=== PATIENT | female | born 1950 | race Caucasian/White ===

== ENCOUNTER 2022-04-06 05:35 | Observation (INO) | payer OTHER ==
[2022-04-06 06:37] LABS: Absolute Lymphocytes (CBC) 1.4 K/uL (0.7-4.9); Hematocrit 32.3 % (36.0-45.0); Lymphocytes % 30.9 % (15.3-44.8); MCV 90.5 fL (80-100); MPV 7.4 fL (7.6-11.3); RBC Red Blood Cell Count 3.57 M/uL (3.86-4.86)
[2022-04-06 06:38] LABS: Protime INR 1.05
[2022-04-06 06:57] LABS: Potassium 3.4 mmol/L (3.5-5.1); Troponin High Sensitivity 3.7 pg/mL (<58.9)
--- NOTE | 2022-04-06 07:13 | RAD REPORT ---
EXAM DESCRIPTION: RAD - Chest Single View - 04/06/2022 6:23 am CLINICAL HISTORY: CHEST PAIN COMPARISON: No comparisons FINDINGS: Lines: None. Lungs: No evidence of edema or pneumonia. Pleural: No significant pleural effusions or pneumothorax. Cardiac: The heart size is within normal limits. Bones: No acute fractures. Other: IMPRESSION: No acute cardiopulmonary disease.
--- NOTE | 2022-04-06 07:43 | RAD REPORT ---
EXAM DESCRIPTION: CT - Chest For Pe Angio - 04/06/2022 7:25 am CLINICAL HISTORY: chest pain, rule out PE COMPARISON: No comparisons TECHNIQUE: Dynamically enhanced axial 3 mm thick images of the chest were obtained during administra tion of <100> mL Isovue 370 IV contrast. Coronal and oblique reconstruction images were generated and reviewed. Exam utilizes a protocol for optimal evaluation of pulmonary arterial tree. Maximum intensity projections 3D imaging was utilized All CT scans are performed using dose optimization technique as appropriate and may include automated exposure control or mA/KV adjustment according to patient size. FINDINGS: Chest Wall: No suspicious thyroid nodules or pathologic lymphadenopathy. Bilateral breast prostheses. Lungs: No acute abnormality. Pleura: No significant effusions or pneumothorax. Mediastinum/brandan: No pathologic lymphadenopathy. Pulmonary arteries/Aorta: No filling defect identified. No aortic aneurysm. Heart: No significant pericardial effusion. Normal heart size. Upper abdomen: No acute abnormality. Bones: No acute abnormality. IMPRESSION: Negative for pulmonary embolism. No other acute findings identified.
--- NOTE | 2022-04-06 07:52 | EKG ---
Test Date: 2022-04-06 Test Time: 05:53:12 Spa Host: RENETTA MEASUREMENT RESULTS: Intervals: Rate: 89 WV: 178 QRSD: 90 QT: 368 QTc: 447 [place]: P: 70 WV: 178 QRS: 19 T: 73 INTERPRETIVE STATEMENTS: Normal sinus rhythm Possible Left atrial enlargement Borderline ECG No previous ECG available for comparison Electronically Signed On 04-06-22 07:52:20 CDT by Ramone Prather
--- NOTE | 2022-04-06 08:13 | RAD REPORT ---
EXAM DESCRIPTION: US - Extrem Venous W Compress [place] - 04/06/2022 7:42 am CLINICAL HISTORY: Swelling COMPARISON: No comparisons TECHNIQUE: Real-time sonographic evaluation of the lower extremity deep venous systems was performed using color Doppler, grayscale, and compression. FINDINGS: Bilateral lower extremities. Normal compressibility, flow augmentation, phasic flow and spontaneous flow is identified in both the left and right lower extremity deep venous systems. No intraluminal filling defects seen. IMPRESSION: No DVT in either lower extremity.
--- NOTE | 2022-04-06 08:17 | RAD REPORT ---
EXAM DESCRIPTION: US - Lower Extremity Arterial Bilat - 04/06/2022 7:42 am CLINICAL HISTORY: Discoloration to calves COMPARISON: None FINDINGS: Color Doppler, grayscale, and spectral analysis was performed. The common femoral and superficial femoral artery is bilaterally demonstrate triphasic waveforms. The left popliteal artery has triphasic waveforms. The right popliteal artery has biphasic waveforms. The right dorsalis pedis artery has biphasic waveforms. Monophasic waveforms in the right posterior t ibial artery. The left dorsalis pedis and posterior tibial arteries have biphasic waveforms IMPRESSION: Monophasic waveforms at the posterior tibial artery on the right side, otherwise no flow limiting stenoses within either lower extremity.
--- NOTE | 2022-04-06 08:29 | ER ---
Nurse's Notes [facility] Name: May Jessica Age: 71 yrs Sex: Female : 1950 Arrival Date: 04/06/2022 Time: 05:39 Bed 24 Private MD: Diagnosis: Chest pain, unspecified Presentation: 04/06 05:58 Chief complaint: Patient states: she started having chest pain which feels like an bb elephant on her chest pain is burning she also has swelling and bruising to bilateral lower legs which just started she had a CVA about a month ago. Coronavirus screen: At this time, the client does not indicate any symptoms associated with coronavirus-19. Ebola Screen: No symptoms or risks identified at this time. Initial Sepsis Screen: Does the patient meet any 2 criteria? No. Patient's initial sepsis screen is negative. Does the patient have a suspected source of infection? No. Patient's initial sepsis screen is negative. Risk Assessment: Do you want to hurt yourself or someone else? Patient reports no desire to harm self or others. Onset of symptoms was April 06, 2022. 05:58 Method Of Arrival: Wheelchair bb 05:58 Acuity: JABIER 2 bb Triage Assessment: 06:09 General: Appears in no apparent distress. Behavior is calm, cooperative. Pain: kd3 Complains of pain in chest. Cardiovascular: Patient's skin is warm and dry. Historical: - Allergies: 06:00 PENICILLINS; bb 06:00 Sulfa (Sulfonamide Antibiotics); bb 06:00 Dolobid; bb 06:00 Tylenol; bb 06:00 many others; bb - Home Meds: 06:00 levocetirizine oral [Active]; pantoprazole oral [Active]; Cyclobenzaprine Oral bb [Active]; Nitrostat SL [Active]; colchicine Oral [Active]; labetalol Oral [Active]; Aspirin Oral [Active]; - PMHx: 06:00 Myocardial infarction; Hypertensive disorder; cancer; CVA; bb - Immunization history:: Client reports receiving the Gaetano \\T\\ Gaetano single-dose vaccine. - Social history:: Smoking status: Patient denies any tobacco usage or history of. - Family history:: not pertinent. - Hospitalizations: : Patient was recently seen at. Screenin:08 Abuse screen: Denies threats or abuse. Denies injuries from another. Nutritional kd3 screening: No deficits noted. Tuberculosis screening: No symptoms or risk factors identified. Fall Risk IV access (20 points). Assessment: 06:09 Pain: Pain does not radiate. Pain began gradually. kd3 06:40 Neuro: Level of Consciousness is awake, alert, obeys commands, Oriented to person, kd3 place, time, situation. Cardiovascular: Patient's skin is warm and dry. Respiratory: Airway is patent Trachea midline Respiratory effort is even, unlabored, Respiratory pattern is regular, symmetrical. Musculoskeletal: Swelling present in right leg and left leg. 07:10 Reassessment: pt. at cat scan. ha1 07:40 Reassessment: Patient and/or family updated on plan of care and expected duration. Pain ha1 level reassessed. Patient is alert, oriented x 3, equal unlabored respirations, skin warm/dry/pink. 08:01 Reassessment: Patient and/or family updated on plan of care and expected duration. Pain ha1 level reassessed. Patient is alert, oriented x 3, equal unlabored respirations, skin warm/dry/pink. 09:00 Reassessment: Patient and/or family updated on plan of care and expected duration. Pain ha1 level reassessed. Patient is alert, oriented x 3, equal unlabored respirations, skin warm/dry/pink. 09:45 Reassessment: Patient and/or family updated on plan of care and expected duration. Pain ha1 level reassessed. Patient is alert, oriented x 3, equal unlabored respirations, skin warm/dry/pink. 09:45 Reassessment: pt. states " my pain has decreased". ha1 10:45 Reassessment: Patient and/or family updated on plan of care and expected duration. Pain ha1 level reassessed. Patient is alert, oriented x 3, equal unlabored respirations, skin warm/dry/pink. 11:40 Reassessment: Patient and/or family updated on plan of care and expected duration. Pain ha1 level reassessed. Patient is alert, oriented x 3, equal unlabored respirations, skin warm/dry/pink. report having back pain. states " its a chronic pain that I always have". 12:40 Reassessment: Patient and/or family updated on plan of care and expected duration. Pain ha1 level reassessed. Patient is alert, oriented x 3, equal unlabored respirations, skin warm/dry/pink. 13:40 Reassessment: Patient and/or family updated on plan of care and expected duration. Pain ha1 level reassessed. Patient is alert, oriented x 3, equal unlabored respirations, skin warm/dry/pink. Vital Signs: 05:58 BP 171 / 97; Pulse 99; Resp 18 S; Temp 98.7(O); Pulse Ox 100% on R/A; Weight 45.36 kg bb (R); Height 5 ft. 0 in. (152.40 cm) (R); Pain 8/10; 06:40 BP 148 / 84; Pulse 84; Resp 18; Pulse Ox 97% on R/A; kd3 07:40 BP 151 / 101; Pulse 83; Resp 15 S; Pulse Ox 96% on R/A; ha1 08:01 BP 141 / 84; Pulse 83; Resp 17 S; Pulse Ox 99% on R/A; ha1 09:14 BP 143 / 82; Pulse 88; Resp 18 S; Pulse Ox 100% on R/A; ha1 09:45 BP 135 / 81; Pulse 77; Resp 19 S; Pulse Ox 98% on R/A; ha1 10:45 BP 139 / 87; Pulse 81; Resp 15 S; Pulse Ox 98% on R/A; Pain 6/10; ha1 11:40 BP 137 / 86; Pulse 80; Resp 17 S; Pulse Ox 98% on R/A; ha1 12:35 BP 132 / 83; Pulse 85; Resp 16 S; Pulse Ox 98% on R/A; Pain 4/10; ha1 13:30 BP 139 / 108; Pulse 82; Resp 16 S; Pulse Ox 99% on R/A; ha1 05:58 Body Mass Index 19.53 (45.36 kg, 152.40 cm) bb ED Course: 05:39 Patient arrived in ED. bp1 05:39 Yoni Esquivel MD is Attending Physician. rn 05:46 Carole Guido, ALEJANDRA is Primary Nurse. kd3 06:00 Triage completed. bb 06:00 Arm band placed on Patient placed in an exam room, on a stretcher, on compliance monitor, bb on pulse oximetry. EKG completed in triage. Results shown to MD. 06:08 Patient has correct armband on for positive identification. Client placed on continuous kd3 cardiac and pulse oximetry monitoring. NIBP monitoring applied. 06:08 No provider procedures requiring assistance completed. Inserted saline lock: 22 gauge kd3 in left wrist, using aseptic technique. Blood collected. Patient maintains SpO2 saturation greater than 95% on room air. 06:24 XRAY Chest (1 view) In Process Unspecified. EDMS 07:07 Attending Physician role handed off by Yoni Esquivel MD sp3 07:07 Luke Giang MD is Attending Physician. sp3 07:27 CT Chest For PE Angio In Process Unspecified. EDMS 07:44 Extrem Venous W Compression Kendall US In Process Unspecified. EDMS 07:44 Lower Extremity Arterial Bilat US In Process Unspecified. EDMS 08:28 Anil Laboy is Hospitalizing Provider. sp3 14:00 Patient admitted, IV remains in place. ha1 Administered Medications: 09:18 Drug: Ondansetron 4 mg Route: IVP; Site: left forearm; ha1 09:45 Follow up: Response: No adverse reaction ha1 09:19 Drug: morphine 2 mg {Note: pain 10/10 RR 18 bp 143/82 HR 88.} Route: IVP; Infused Over: ha1 4 mins; Site: left forearm; 09:45 Follow up: Response: No adverse reaction; Pain is decreased; RASS: Alert and Calm (0) ha1 Medication: 06:10 VIS not applicable for this client. kd3 Outcome: 08:28 Decision to Hospitalize by Provider. sp3 14:00 Admitted to ER Hold. Please see [facility] for further documentation. ha1 14:00 Condition: stable 14:00 Instructed on the need for admit, Demonstrated understanding of instructions. 08 09:42 Patient left the ED. vg1 Signatures: Dispatcher [employer] EDMS Elham Mcmullen RN ALEJANDRA bb Yoni Esquivel MD MD rn Garcia, Victoria RN ALEJANDRA vg1 Linda La Setul, MD MD sp3 Carole Guido RN RN kd3 Yazmin Soto RN RN ha1 Corrections: (The following items were deleted from the chart) 04/06 11:20 10:35 Reassessment: Patient and/or family updated on plan of care and expected ha1 duration. Pain level reassessed. Patient is alert, oriented x 3, equal unlabored respirations, skin warm/dry/pink. ha1 11:49 10:45 BP 139 / 87; Pulse 81bpm; Resp 15bpm; Spontaneous; Pulse Ox 98% RA; ha1 ha1
--- NOTE | 2022-04-06 08:29 | EDPHYS ---
Physician Documentation [facility] Name: May Jessica Age: 71 yrs Sex: Female : 1950 Arrival Date: 04/06/2022 Time: 05:39 Bed 24 Private MD: ED Physician Luke Giang HPI: 04/06 06:13 This 71 yrs old Female presents to ER via Wheelchair with complaints of Chest Pain > 30 rn y/o, Leg Swelling. 06:13 The patient or guardian reports chest pain that is located primarily in the substernal rn area. Onset: 6 hour(s) ago. The pain radiates to neck. Associated signs and symptoms: Pertinent positives: lower extremity swelling, shortness of breath, Pertinent negatives: abdominal pain, cough, palpitations, syncope, vomiting. The chest pain is described as a heaviness. Duration: The patient or guardian reports a single episode, that is still ongoing. Modifying factors: The symptoms are alleviated by nothing. the symptoms are aggravated by nothing. Severity of pain: At its worst the pain was moderate in the emergency department the pain is unchanged. The patient has experienced similar episodes in the past. The patient has not recently seen a physician. Pt reports "was fine until 6 hours ago", when began to experience sudden leg swelling, bilateral, with bruising and pain. Also reports "elephant sitting on chest" that began shortly after. + assoc sob. Went across the street to [place], told they could not see her, and was directed to this hospital. No fever or trauma. Reports diagnosed with stroke about 1 month ago, has been staying in bed due to leg weakness, and states only taking aspirin. . Historical: - Allergies: 06:00 PENICILLINS; bb 06:00 Sulfa (Sulfonamide Antibiotics); bb 06:00 Dolobid; bb 06:00 Tylenol; bb 06:00 many others; bb - Home Meds: 06:00 levocetirizine oral [Active]; pantoprazole oral [Active]; Cyclobenzaprine Oral bb [Active]; Nitrostat SL [Active]; colchicine Oral [Active]; labetalol Oral [Active]; Aspirin Oral [Active]; - PMHx: 06:00 Myocardial infarction; Hypertensive disorder; cancer; CVA; bb - Immunization history:: Client reports receiving the Gaetano \\T\\ Gaetano single-dose vaccine. - Social history:: Smoking status: Patient denies any tobacco usage or history of. - Family history:: not pertinent. - Hospitalizations: : Patient was recently seen at. ROS: 06:13 Constitutional: Negative for fever, chills, and weight loss, Eyes: Negative for injury, rn pain, redness, and discharge, Neck: Negative for injury, pain, and swelling, Cardiovascular: + chest pain Respiratory: + sob Abdomen/GI: Negative for abdominal pain, nausea, vomiting, diarrhea, and constipation, Back: Negative for injury and pain, : Reports difficulty urinating "since stroke" MS/Extremity: + swelling and pain to bilateral legs Skin: + discoloration of legs Neuro: Negative for headache, numbness, tingling, and seizure. Exam: 06:13 Constitutional: This is a well developed, well nourished patient who is awake, alert, rn and in no acute distress. Head/Face: Normocephalic, atraumatic. Eyes: Periorbital areas with no swelling, redness, or edema. Cardiovascular: Regular rate and rhythm. No pulse deficits. Respiratory: Clear bilateral breath sounds. No increased work of breathing, no retractions or nasal flaring. Abdomen/GI: soft, non-tender, no masses or distension Back: No spinal tenderness. Skin: Warm, dry, + splotchy ecchymotic lesions to bilateral lower extremities. No open wounds. + varicose veins. MS/ Extremity: Pulses equal, strong pedal pulses. 2+ edema bilateral lower ext. Neuro: Awake and alert, GCS 15 Vital Signs: 05:58 BP 171 / 97; Pulse 99; Resp 18 S; Temp 98.7(O); Pulse Ox 100% on R/A; Weight 45.36 kg bb (R); Height 5 ft. 0 in. (152.40 cm) (R); Pain 8/10; 06:40 BP 148 / 84; Pulse 84; Resp 18; Pulse Ox 97% on R/A; kd3 07:40 BP 151 / 101; Pulse 83; Resp 15 S; Pulse Ox 96% on R/A; ha1 08:01 BP 141 / 84; Pulse 83; Resp 17 S; Pulse Ox 99% on R/A; ha1 09:14 BP 143 / 82; Pulse 88; Resp 18 S; Pulse Ox 100% on R/A; ha1 09:45 BP 135 / 81; Pulse 77; Resp 19 S; Pulse Ox 98% on R/A; ha1 10:45 BP 139 / 87; Pulse 81; Resp 15 S; Pulse Ox 98% on R/A; Pain 6/10; ha1 11:40 BP 137 / 86; Pulse 80; Resp 17 S; Pulse Ox 98% on R/A; ha1 12:35 BP 132 / 83; Pulse 85; Resp 16 S; Pulse Ox 98% on R/A; Pain 4/10; ha1 13:30 BP 139 / 108; Pulse 82; Resp 16 S; Pulse Ox 99% on R/A; ha1 05:58 Body Mass Index 19.53 (45.36 kg, 152.40 cm) bb MDM: 05:39 Patient medically screened. rn 06:55 Transition of care: After a detail discussion of the patient's case, care is rn transferred to Luke Giang MD. 08:27 Data reviewed: vital signs, nurses notes. ED course: Ultrasounds and CT scan and labs sp3 reviewed which demonstrate no current acute abnormality. Given duration of symptoms being only 6 hours, will place patient in obs for serial troponins and general cardiac consultation. Further per inpatient team.. 04/06 06:09 Order name: Basic Metabolic Panel; Complete Time: 07:05 rn 04/06 06:09 Order name: CBC with Diff; Complete Time: 06:43 rn 04/06 06:09 Order name: NT PRO-BNP; Complete Time: 07:05 rn 04/06 06:09 Order name: PT-INR; Complete Time: 06:43 rn 04/06 06:09 Order name: Troponin HS; Complete Time: 07:05 rn 04/06 06:52 Order name: SARS-COV-2 Antigen Rapid; Complete Time: 20:12 rn 04/06 06:09 Order name: XRAY Chest (1 view); Complete Time: 07:15 rn 04/06 06:09 Order name: Extrem Venous W Compression [place] US; Complete Time: 08:21 rn 04/06 06:09 Order name: Lower Extremity Arterial Bilat US; Complete Time: 08:21 rn 04/06 14:06 Order name: Troponin High Sensitivity; Complete Time: 20:12 EDMS 04/06 14:06 Order name: Lipid Profile; Complete Time: 20:12 EDMS 04/06 18:09 Order name: Troponin High Sensitivity; Complete Time: 20:12 EDMS 04/07 04:07 Order name: Basic Metabolic Panel; Complete Time: 05:42 EDMS 04/07 04:25 Order name: CBC with Automated Diff; Complete Time: 05:42 EDMS 04/06 06:09 Order name: EKG; Complete Time: 06:10 rn 04/06 06:09 Order name: Cardiac monitoring; Complete Time: 06:10 rn 04/06 06:09 Order name: EKG - Nurse/Tech; Complete Time: 06:10 rn 04/06 06:09 Order name: IV Saline Lock; Complete Time: 06:10 rn 04/06 06:09 Order name: Labs collected and sent; Complete Time: 06:10 rn 04/06 06:09 Order name: O2 Per Protocol; Complete Time: 06:10 rn 04/06 06:09 Order name: O2 Sat Monitoring; Complete Time: 06:10 rn 04/06 06:09 Order name: CT Chest For PE Angio; Complete Time: 08:21 rn Administered Medications: 09:18 Drug: Ondansetron 4 mg Route: IVP; Site: left forearm; ha1 09:45 Follow up: Response: No adverse reaction ha1 09:19 Drug: morphine 2 mg {Note: pain 10/10 RR 18 bp 143/82 HR 88.} Route: IVP; Infused Over: ha1 4 mins; Site: left forearm; 09:45 Follow up: Response: No adverse reaction; Pain is decreased; RASS: Alert and Calm (0) ha1 Disposition Summary: 04/06/22 08:28 Hospitalization Ordered Hospitalization Status: Observation sp3 Provider: Anil Laboy sp3 Condition: Stable sp3 Problem: an acute exacerbation sp3 Symptoms: have worsened sp3 Bed/Room Type: Standard sp3 Location: [facility] ER HOLD(04/06/22 12:45) Room Assignment: ERHOLD-(04/06/22 12:45) iw Diagnosis - Chest pain, unspecified sp3 Forms: - Medication Reconciliation Form sp3 - SBAR form sp3 Signatures: Dispatcher [employer] EDElham Aguilera RN RN bb Williams, Irene, RN RN iw Yoni Esquivel MD MD rn Patel, Setul, MD MD sp3 Chely Mercedes PA PA sb3 Yazmin Soto, RN RN ha1 Corrections: (The following items were deleted from the chart) 06:17 06:13 Constitutional: Negative for fever, chills, and weight loss, Eyes: Negative for rn injury, pain, redness, and discharge, Neck: Negative for injury, pain, and swelling, Cardiovascular: + chest pain Respiratory: + sob Abdomen/GI: Negative for abdominal pain, nausea, vomiting, diarrhea, and constipation, Back: Negative for injury and pain, MS/Extremity: + swelling and pain to bilateral legs Skin: + discoloration of legs Neuro: Negative for headache, numbness, tingling, and seizure, rn 08:28 Telemetry/MedSurg (observation) sp3 iw 08:28 sp3 iw
[2022-04-06] MEDS ORDERED: MORPHINE 2 MG/ML SYR ONE ×3 (09:13→21:05)
[2022-04-06] MEDS ORDERED: ONDANSETRON 4 MG/2 ML VIAL ONE ×3 (09:13→21:05)
--- NOTE | 2022-04-06 13:07 | P.HP ---
Certification for Inpatient Patient admitted to: Observation With expected LOS: <2 Midnights Practitioner: I am a practitioner with admitting privileges, knowledge of patient current condition, hospital course, and medical plan of care. Services: Services provided to patient in accordance with Admission requirements found in Title 42 Section 412.3 of the Code of Federal Regulations Patient History Date of Service: 04/06/22 Reason for admission: Chest pain History of Present Illness: 71-year-old woman with multiple medical problems including prior history of stroke, coronary artery disease, remote history of breast cancer presented to the emergency department with a complaint of chest tightness and chest pain of onset earlier this morning. Patient states that she was not feeling good throughout the day yesterday, she developed swelling of the lower extremities along with dark coloration of her ankles. Symptoms associated with palpitation. Patient reported prior bilateral lower extremity swelling and pain several years ago. She mentioned she underwent extensive work-up at the [facility] in [place] and the etiology was not identified. She reports history of labile hypertension. Her initial troponin in the ED is negative. EKG shows no significant ischemic changes. Venous Doppler of the lower extremities, arterial Doppler of the lower extremities were all unremarkable. Chest x-ray shows no acute disease. Patient hospitalized for ACS rule out. - Past Medical/Surgical History -: Hypertension -: Coronary to disease -: Stroke -: Breast cancer -: Bilateral mastectomy - Family History Father -: Cancer Mother -: Cancer - Social History Smoking Status: Never smoker Alcohol use: Yes CD- Drugs: No Place of Residence: Home Review of Systems Other: She denied any fever or coughing or abdominal pain or diarrhea or nausea or vomiting. Except as documented, all other systems reviewed and negative. Physical Examination - Physical Exam General: Alert, In no apparent distress, Oriented x3 HEENT: Normocephalic, PERRLA, Mucous membr. moist/pink, EOMI, Sclerae nonicteric Neck: Supple, JVD not distended, No Thyromegaly Respiratory: Clear to auscultation bilaterally, Normal air movement Cardiovascular: Regular rate/rhythm, Normal S1 S2, No murmurs, Edema (1+ bilateral lower extremity edema) Capillary refill: <2 Seconds Gastrointestinal: Normal bowel sounds, Soft and benign, Non-distended, No tenderness Musculoskeletal: No warmth, Swelling (Bilateral ankle) Integumentary: No cyanosis, Other (Hypopigmented discoloration-bilateral ankle) Neurological: Normal speech, Normal strength at 5/5 x4 extr, Cranial nerves 3-12 intact Lymphatics: No axilla or inguinal lymphadenopathy - Studies Laboratory Data (last 24 hrs) 04/06/22 06:14: PT 11.6, INR 1.05 04/06/22 06:14: WBC 4.6, Hgb 11.4 L, Hct 32.3 L, Plt Count 166 04/06/22 06:14: Sodium 134 L, Potassium 3.4 L, BUN 9, Creatinine 0.80, Glucose 99 Assessment and Plan - Problems (Diagnosis) (1) Chest pain Current Visit: Yes Status: Acute (2) Coronary artery disease Current Visit: Yes Status: Acute (3) Peripheral edema Current Visit: Yes Status: Acute (4) GERD (gastroesophageal reflux disease) Current Visit: Yes Status: Acute - Plan Place patient under observation. Continue to trend troponin. Aspirin. Resume home dose labetalol for blood pressure control. Will consider to add amlodipine for uncontrolled blood pressure. Obtain echocardiogram given peripheral edema. Pain management as needed Check lipid profile Continue home dose Protonix. - Advance Directives Does patient have a Living Will: No Does patient have a Durable POA for Healthcare: No
[2022-04-06] MEDS ORDERED: NITROGLYCERIN 0.4 MG/TAB SL PRN (13:19)
[2022-04-06 14:06] LABS: Troponin High Sensitivity 5.7 pg/mL (<58.9)
[2022-04-06 14:16] LABS: SARS-CoV-2 Antigen Rapid Res Negative (Negative)
[2022-04-06] MEDS ORDERED: TRAMADOL HCL 50 MG TAB PO PRN (14:25)
[2022-04-06] MEDS: MORPHINE 2 MG/ML SYR IV PRN ×2 (15:30→21:08)
[2022-04-06 18:47] VITALS: BMI 2271.9
[2022-04-06] MEDS ORDERED: PNEUMOCOCCAL VACCINE 0.5 ML IMVAC ONE (20:00)
[2022-04-06] MEDS: ONDANSETRON 4 MG/2 ML VIAL IV PRN (21:08)
[2022-04-07] MEDS: ONDANSETRON 4 MG/2 ML VIAL IV PRN ×2 (02:24→08:53)
[2022-04-07] MEDS: MORPHINE 2 MG/ML SYR IV PRN ×2 (02:24→08:53)
[2022-04-07] MEDS ORDERED: MORPHINE 2 MG/ML SYR ONE ×2 (02:26→08:49)
[2022-04-07] MEDS ORDERED: ONDANSETRON 4 MG/2 ML VIAL ONE ×2 (02:29→08:49)
[2022-04-07 04:01] LABS: Absolute Lymphocytes (CBC) 1.1 K/uL (0.7-4.9); Lymphocytes % 32.6 % (15.3-44.8); MCV 90.6 fL (80-100); MPV 7.3 fL (7.6-11.3); RBC Red Blood Cell Count 3.53 M/uL (3.86-4.86)
[2022-04-07 04:07] LABS: Potassium 3.5 mmol/L (3.5-5.1)
--- NOTE | 2022-04-07 08:56 | P.DS ---
Admission Date: 04/06/22 Discharge Date: 04/07/22 Disposition: ROUTINE DISCHARGE Discharge Condition: FAIR Reason for Admission: Chest pain - Problems (1) Chest pain Status: Acute (2) Coronary artery disease Status: Acute (3) Peripheral edema Status: Acute (4) GERD (gastroesophageal reflux disease) Status: Acute Brief History of Present Illness: 71-year-old woman with multiple medical problems including prior history of stroke, coronary artery disease, remote history of breast cancer presented to the emergency department with a complaint of chest tightness and chest pain of onset earlier this morning. Patient states that she was not feeling good throughout the day yesterday, she developed swelling of the lower extremities along with dark coloration of her ankles. Symptoms associated with palpitation. Patient reported prior bilateral lower extremity swelling and pain several years ago. She mentioned she underwent extensive work-up at the hospital in [place] and the etiology was not identified. She reports history of labile hypertension. Her initial troponin in the ED was negative. EKG showed no significant ischemic changes. Venous Doppler of the lower extremities, arterial Doppler of the lower extremities were all unremarkable. Chest x-ray showed no acute disease. Patient hospitalized for ACS rule out. Hospital Course: Patient placed under observation on the medical floor. Troponin trended negativ e. She was asymptomatic during the hospital stay. Echocardiogram done was unremarkable. ACS ruled out. Patient is deemed stable for discharge. Patient with a history of chronic back pain. She was complaining of uncontrolled low back pain with intermittent sharp shooting pain radiating down bilateral legs. Patient refused a prescription for tramadol. There is a documented allergy to acetaminophen but patient requested [place]. Her [employer]LLOWER was reviewed and noted she was prescribed [place] and she had no issues with it. Patient prescribed a few days for pain control. Vital Signs/Physical Exam: Temp Pulse Resp BP Pulse Ox 98 F 68 16 125/78 100 04/06/22 16:00 04/07/22 04:00 04/07/22 08:53 04/07/22 04:00 04/07/22 08:53 General: Alert, In no apparent distress, Oriented x3 HEENT: Mucous membr. moist/pink Neck: JVD not distended Respiratory: Clear to auscultation bilaterally, Normal air movement Cardiovascular: No edema, Regular rate/rhythm, Normal S1 S2 Capillary refill: <2 Seconds Gastrointestinal: Normal bowel sounds, Soft and benign, Non-distended Musculoskeletal: No tenderness Integumentary: No cyanosis Neurological: Normal strength at 5/5 x4 extr Laboratory Data at Discharge: WBC 3.3 K/uL (4.3-10.9) L D 04/07/22 03:12 Hgb 11.4 g/dL (12.0-15.0) L 04/07/22 03:12 Hct 32.0 % (36.0-45.0) L 04/07/22 03:12 Plt Count 151 K/uL (152-406) L 04/07/22 03:12 PT 11.6 SECONDS (9.5-12.5) 04/06/22 06:14 INR 1.05 04/06/22 06:14 Sodium 136 mmol/L (136-145) 04/07/22 03:12 Potassium 3.5 mmol/L (3.5-5.1) 04/07/22 03:12 BUN 12 mg/dL (7-18) 04/07/22 03:12 Creatinine 0.72 mg/dL (0.55-1.3) 04/07/22 03:12 Glucose 161 mg/dL (74-106) H 04/07/22 03:12 Triglycerides 32 mg/dL (<150) 04/06/22 13:32 Cholesterol 141 mg/dL (<200) 04/06/22 13:32 HDL Cholesterol 81 mg/dL (40-60) H 04/06/22 13:32 Cholesterol/HDL Ratio 1.74 04/06/22 13:32 Home Medications: Aspirin [Aspirin EC 81 MG] 81 mg PO DAILY #30 tab 04/07/22 Hydrocodone 5/APAP 325 [[place] 5/325] 1 tab PO Q6H PRN #15 tab 04/07/22 New Medications: Aspirin [Aspirin EC 81 MG] 81 mg PO DAILY #30 tab Hydrocodone 5/APAP 325 [[place] 5/325] 1 tab PO Q6H PRN #15 tab PRN Reason: Pain Diet: AHA Activity: Ad frank Followup: NONE,NONE [Primary Care Provider] - 1-2 Weeks
[2022-04-07] MEDS ORDERED: ASPIRIN EC 81 MG TAB PO ONE (08:59)
[2022-04-07] MEDS ORDERED: ASPIRIN EC 81 MG TAB PO SCH (09:00)
--- NOTE | 2022-04-07 09:12 | ECHO ---
HEIGHT: 0 ft 5.7 in WEIGHT: 105 lb 0 oz DATE OF STUDY: 04/06/[address]: Anil Laboy MD 2-DIMENSIONAL: YES M.MODE: YES DOPPLER: YES COLOR FLOW: YES TDS: PORTABLE: YES DEFINITY: BUBBLE STUDY: DIAGNOSIS: CHEST PAIN, BILATERAL LOWER EXTREMITY SWELLING CARDIAC HISTORY: CATHERIZATION: NO SURGERY: NO PROSTHETIC VALVE: NO PACEMAKER: NO MEASUREMENTS (cm) DIASTOLIC (NORMALS) SYSTOLIC (NORMALS) IVSd 0.9 (0.6-1.2) LA Diam 1.6 (1.9-4.0) LVEF 62% LVIDd 4.2 (3.5-5.7) LVIDs 2.8 (2.0-3.5) %FS 33% LVPWd 1.0 (0.6-1.2) Ao Diam 2.2 (2.0-3.7) 2 DIMENSIONAL ASSESSMENT: RIGHT ATRIUM: NORMAL LEFT ATRIUM: NORMAL RIGHT VENTRICLE: NORMAL LEFT VENTRICLE: NORMAL TRICUSPID VALVE: NORMAL MITRAL VALVE: NORMAL PULMONIC VALVE: NORMAL AORTIC VALVE: NORMAL PERICARDIAL EFFUSION: NONE AORTIC ROOT: NORMAL LEFT VENTRICULAR WALL MOTION: NORMAL DOPPLER/COLOR FLOW: NORMAL COMMENTS: TECHNICALY DIFFICULT STUDY. NORMAL LEFT VENTRICULAR SIZE AND FUNCTION. NO EFFUSION. TECHNOLOGIST: GERSON MAHMOOD
[2022-04-07 10:03] VITALS: TEMP 98.7
[2022-04-07 10:24] VITALS: BP 139/108; O2SAT 99
== END 2022-04-07 09:43 | disposition home or self-care (01) ==
LOC: ER 05:35 → ERHOLD 12:58
PROVIDERS: ADMIT Internal Medicine; ATTEND Internal Medicine
DX: R07.9 Chest pain, unspecified (principal); I25.10 Atherosclerotic heart disease of native coronary artery without angina pectoris; R60.0 Localized edema; R00.2 Palpitations; I10 Essential (primary) hypertension; K21.9 Gastro-esophageal reflux disease without esophagitis; M54.50 Low back pain, unspecified; G89.29 Other chronic pain; I25.2 Old myocardial infarction; Z86.73 Personal history of transient ischemic attack (TIA), and cerebral infarction without residual deficits; Z85.3 Personal history of malignant neoplasm of breast; Z90.13 Acquired absence of bilateral breasts and nipples; Z79.82 Long term (current) use of aspirin; Z79.899 Other long term (current) drug therapy; Z88.0 Allergy status to penicillin; Z88.6 Allergy status to analgesic agent; Z88.2 Allergy status to sulfonamides; Z88.8 Allergy status to other drugs, medicaments and biological substances; Z20.822 Contact with and (suspected) exposure to COVID-19; Z80.9 Family history of malignant neoplasm, unspecified
CPT/HCPCS: 36415; 71045; 71275; 80048; 80061; 83880; 84484; 85025; 85610; 87811; 93005; 93306; 93925; 93970; J2270; J2405; Q9967